=== PATIENT | male | born 1995 | race Two or more races ===

== ENCOUNTER 2017-12-10 11:38 | Emergency (ER) | payer OTHER ==
[~2017-12-10] VITALS: Ht 172.7 cm; Wt 81.6 kg
--- NOTE | 2017-12-10 11:48 | NUR ---
Dr. Avilez at bedside for MSE.
[2017-12-10] MEDS ORDERED: KETOROLAC TROMETHAMINE 60 MG INJ IM ONE ×2 (11:57→12:00)
[2017-12-10 12:00] LABS: *BILIRUBIN,URIN NEGATIVE (NEGATIVE); *BLOOD, URINE 3+ (NEGATIVE); *COLOR,URINE YELLOW (YELLOW); *KETONES,URINE TRACE (NEGATIVE); *PROTEIN,URINE TRACE (NEGATIVE); *UROBILINOGEN,URINE 0.2 E.U./dl (NORMAL); LEUKOCYTE ESTERASE ,URINE NEGATIVE (NEGATIVE); NITRITE, URINE NEGATIVE (NEGATIVE); UGLUCOSE NEGATIVE (NEGATIVE)
[2017-12-10 12:01] LABS: *CLARITY,URINE HAZY (CLEAR)
[2017-12-10 12:09] LABS: BACTERIA,URINE FEW /HPF (NONE SEEN); WBC,URINE 0-3 /HPF (0-3)
[2017-12-10 12:10] LABS: SPERM,URINE FEW /HPF (NONE SEEN); SQUAMOUS EPITHELIAL CELL,UR FEW /HPF (NONE SEEN)
--- NOTE | 2017-12-10 12:10 | NUR ---
Pt left room for xray.
--- NOTE | 2017-12-10 12:20 | NUR ---
Pt back in room from xray and is in no apparent distress.
[2017-12-10 13:23] VITALS: BP 144/72
--- NOTE | 2017-12-10 13:23 | NUR ---
Patient discharged to home in stable conditon. Written and verbal after care instructions given. Patient verbalizes understanding of instructions. Pt left ER in steady gait.
== END 2017-12-10 13:25 | disposition home or self-care (01) ==
LOC: ER 11:39
DX: N20.0 Calculus of kidney (principal)
CPT/HCPCS: A4663; J1885; J7030